=== PATIENT | male | born 1995 | race African-American/Black ===

== ENCOUNTER 2017-06-09 22:25 | Emergency (ER) | payer OTHER ==
[~2017-06-09] VITALS: Ht 177.8 cm; Wt 68.0 kg
[2017-06-09 22:43] VITALS: BP 125/79
[2017-06-09] MEDS ORDERED: Tetanus/Diptheria/Pertussis Vaccine 0.5ml Syr IM ONE (22:45)
[2017-06-09] MEDS ORDERED: Bacitracin Oint UD TOPIC ONE (22:45)
--- NOTE | 2017-06-09 22:45 | Emergency Room Report ---
History of Present Illness General Chief Complaint: To Be Triaged Source: Patient Present Illness HPI Is a 22-year-old male with no past medical history. He presents with chief complaint of knee abrasion. He was [facility] away from [facility] and was tackled. He scraped his knee on the ground. No other injury. Did not pass out. Denies any other complaint. No nausea no vomiting. No fever chills. minimal pain. Allergies: Coded Allergies: No Known Allergies (Unverified , 06/09/17) Patient History Past Medical History: see triage record, old chart reviewed Past Surgical History: none Pertinent Family History: none Social History: Denies: smoking Immunizations: other Reviewed Nursing Documentation: PMH: Agreed, PSxH: Agreed Review of Systems Eye: Denies: eye pain, blurred vision ENT: Denies: ear pain, nose congestion, throat swelling Respiratory: Denies: cough, shortness of breath Cardiovascular: Denies: chest pain, palpitations Gastrointestinal: Denies: abdominal pain, diarrhea, nausea, vomiting Musculoskeletal: Denies: back pain, joint pain Skin: Denies: rash Neurological: Denies: headache, numbness Endocrine: Denies: increased thirst, increased urine Hematologic/Lymphatic: Denies: easy bruising All Other Systems: negative except mentioned in HPI Physical Exam [id number] EP Interpretation: reviewed, normal General Appearance: well appearing, no apparent distress, alert Head: normocephalic, atraumatic Eyes: bilateral eye PERRL, bilateral eye EOMI ENT: hearing grossly normal, normal pharynx Neck: full range of motion, supple, no meningismus Respiratory: chest non-tender, lungs clear, normal breath sounds Cardiovascular #1: regular rate, rhythm, no murmur Gastrointestinal: normal bowel sounds, non tender, no mass, no organomegaly, no bruit, non-distended Musculoskeletal: back normal, gait/station normal, normal range of motion, other - Right knee with superficial abrasion over the patella. Neurologic: alert, oriented x3 Psychiatric: mood/affect normal Skin: warm/dry Medical Decision Making Diagnostic Impression: Primary Impression: Abrasion, right knee, initial encounter ER Course Patient with abrasion to the knee. No fracture clinically. Is walking it without difficulty. [facility]'ll [facility] to [facility]. Status: unchanged Disposition: D/C TO [facility] Condition: Stable Additional Instructions: followup with your DrTobi in 7 days. Return if worse. JARROD PICKENS M.D. Jun 09, 2017 22:45
[2017-06-09 22:51] VITALS: BP 125/79
== END 2017-06-09 22:51 ==
LOC: EMR 22:36
DX: S80.211A Abrasion, right knee, initial encounter (principal); Z23 Encounter for immunization; Y35.811A Legal intervention involving manhandling, law enforcement official injured, initial encounter; Y93.9 Activity, unspecified; Y92.9 Unspecified place or not applicable
CPT/HCPCS: 90471; 90715; 99284